=== PATIENT | male | born 1950 | race Caucasian/White ===

== ENCOUNTER 2021-10-17 06:51 | Outpatient (REF) | payer MEDICARE, SELFPAY ==
[2021-10-17 07:16] LABS: MANUAL DIFF FLAG NO
[2021-10-17 08:09] LABS: Basophils Absolute Auto 0.1 X10*3/uL (0.0-0.2); Basophils Percent Auto 0.6 % (0-2); Eosinophils Absolute Auto 0.3 X10*3/uL (0.0-0.4); Eosinophils Percent Auto 3.4 % (0-4); Hematocrit 44.3 % (42.0-52.0); Hemoglobin 14.8 g/dl (14.0-18.0); Imm Gran Abs Auto 0.03 X10*3/uL (0.00-0.03); Imm Gran Pct Auto 0.4 % (0.0-0.4); Lymphocytes Absolute Auto 2.5 X10*3/uL (1.2-4.9); Lymphocytes Percent Auto 31.9 % (20-40); Mean Corpuscular HGB Conc 33.4 g/dl (31.0-36.0); Mean Corpuscular Hemoglobin 30.5 pg (27.0-33.0); Mean Corpuscular Volume 91.3 fL (80.0-98.0); Mean Platelet Volume 12.2 fL (9.4-12.4); Monocytes Absolute Auto 0.7 X10*3/uL (0.1-1.2); Monocytes Percent Auto 8.5 % (2-11); Neutrophils Absolute Auto 4.4 x10*3/uL (2.0-8.3); Neutrophils Percent Auto 55.2 % (45-73); Platelet Count 207 X10*3/uL (160-400); Red Blood Count 4.85 X10*6/uL (4.60-5.80); Red Cell Distribution Width 12.3 % (11.0-16.0); White Blood Count 7.9 X10*3/uL (4.8-10.8)
[2021-10-17 08:29] LABS: Alanine Aminotransferase 32 U/L (0-40); Albumin Level 4.3 g/dL (3.5-5.0); Alkaline Phosphatase 78 U/L (39-117); Anion Gap 12 (12-20); Aspartate Amino Transferase 21 U/L (5-37); Bilirubin Total 0.7 mg/dL (0.0-1.0); Blood Urea Nitrogen 22 mg/dL (9-16); Calcium 9.4 mg/dL (8.4-10.2); Carbon Dioxide 25 mmol/L (22-29); Chloride 108 mmol/L (96-108); Cholesterol 208 mg/dL; Estimated Glomerular Filt Rate > 60; Glucose Random 94 mg/dL (60-115); HDL Cholesterol 55 mg/dL; LDL Cholesterol Calculated 138 mg/dl; Potassium 4.7 mmol/L (3.3-5.1); Sodium 140 mmol/L (135-145); Total Protein 6.8 g/dL (6.5-8.0); Triglycerides 78 mg/dL
[2021-10-17 08:54] LABS: Prostate Specific Antigen Scr 0.52 ng/mL (<0.05-4.0); Thyroid Stimulating Hormone 3.19 uIU/mL (0.32-4.0)
[2021-10-17 09:08] LABS: Folate 8.7 ng/mL (> or = 4.0); Vitamin B12 277 pg/mL (200-900)
[2021-10-17 09:15] LABS: Estimated Average Glucose 114 mg/dL; Hemoglobin A1c % 5.6 %
== END 2021-10-17 06:52 | disposition home or self-care (01) ==
LOC: HO.LAB 06:51
PROVIDERS: PCP Internal Medicine; Visit Provider Internal Medicine
DX: E78.00 Pure hypercholesterolemia, unspecified (principal); R73.02 Impaired glucose tolerance (oral); E66.3 Overweight
CPT/HCPCS: 36415; 80053; 80061; 82607; 82746; 83036; 84153; 84439; 84443; 85025

== ENCOUNTER 2021-10-25 16:22 | Outpatient (REF) | payer MEDICARE, SELFPAY ==
--- NOTE | ~2021-10-25 | XR_ITS ---
EXAMINATION: XR SHOULDER, LEFT CLINICAL INFORMATION: Pain COMPARISON: None TECHNIQUE: AP external rotation, Grashey, scapular Y, and axillary views of the left shoulder. FINDINGS: Bone alignment is normal. No fracture or dislocation is seen. The joint spaces are normal. There may be a small undersurface acromial osteophyte. XR/XR shoulder LT min 2V IMPRESSION: Small undersurface acromial osteophyte otherwise unremarkable exam.
== END 2021-10-25 16:23 | disposition home or self-care (01) ==
LOC: HO.XRAY 16:22
PROVIDERS: PCP Internal Medicine; Visit Provider Internal Medicine
DX: M25.512 Pain in left shoulder (principal)
CPT/HCPCS: 73030

== ENCOUNTER 2023-09-14 06:02 | Outpatient (REF) | payer MEDICARE, SELFPAY ==
--- NOTE | ~2023-09-14 | XR_ITS ---
EXAMINATION: XR CHEST CLINICAL INFORMATION: Cough COMPARISON: 07/10/2017 TECHNIQUE: 2 views of the chest were obtained. FINDINGS: Heart and mediastinum within normal limits. Appearance of the carson stable. No vascular congestion, consolidations or effusions. Multiple mild compression deformities. XR/XR chest 2V IMPRESSION: No acute cardiopulmonary disease.
[2023-09-14 06:21] LABS: MANUAL DIFF FLAG NO
[2023-09-14 07:27] LABS: Basophils Absolute Auto 0.1 X10*3/uL (0.0-0.2); Eosinophils Absolute Auto 0.3 X10*3/uL (0.0-0.4); Eosinophils Percent Auto 3.1 % (0-4); Hematocrit 45.4 % (42.0-52.0); Imm Gran Abs Auto 0.04 X10*3/uL (0.00-0.03); Imm Gran Pct Auto 0.5 % (0.0-0.4); Lymphocytes Absolute Auto 2.6 X10*3/uL (1.2-4.9); Lymphocytes Percent Auto 32.7 % (20-40); Mean Corpuscular Hemoglobin 30.2 pg (27.0-33.0); Mean Corpuscular Volume 91.3 fL (80.0-98.0); Mean Platelet Volume 12.1 fL (9.4-12.4); Monocytes Absolute Auto 0.7 X10*3/uL (0.1-1.2); Monocytes Percent Auto 8.9 % (2-11); Neutrophils Absolute Auto 4.3 x10*3/uL (2.0-8.3); Neutrophils Percent Auto 53.8 % (45-73); Platelet Count 204 X10*3/uL (160-400); Red Blood Count 4.97 X10*6/uL (4.60-5.80); Red Cell Distribution Width 12.6 % (11.0-16.0)
[2023-09-14 07:53] LABS: Alanine Aminotransferase 33 U/L (0-40); Albumin Level 4.5 g/dL (3.5-5.0); Alkaline Phosphatase 76 U/L (39-117); Anion Gap 14 (12-20); Aspartate Amino Transferase 26 U/L (5-37); Bilirubin Total 0.7 mg/dL (0.0-1.0); Blood Urea Nitrogen 16 mg/dL (9-16); Calcium 10.1 mg/dL (8.4-10.2); Carbon Dioxide 26 mmol/L (22-29); Chloride 106 mmol/L (96-108); Cholesterol 204 mg/dL (<200); Estimated Glomerular Filt Rate > 60; Glucose Random 100 mg/dL (60-115); HDL Cholesterol 52 mg/dL (>40); LDL Cholesterol Calculated 139 mg/dL (<100); Potassium 4.7 mmol/L (3.3-5.1); Sodium 141 mmol/L (135-145); Total Protein 7.1 g/dL (6.5-8.0); Triglycerides 68 mg/dL (<150)
[2023-09-14 08:14] LABS: Folate 10.4 ng/mL (> or = 4.0); Vitamin B12 386 pg/mL (200-900)
[2023-09-14 08:25] LABS: Free T4 (Free Thyroxine) 0.95 ng/dL (0.71-1.85); Thyroid Stimulating Hormone 2.81 uIU/mL (0.32-4.0)
== END 2023-09-14 06:03 | disposition home or self-care (01) ==
LOC: HO.LAB 06:02
PROVIDERS: PCP Internal Medicine; Visit Provider Internal Medicine
DX: R05.9 Cough, unspecified (principal); E78.00 Pure hypercholesterolemia, unspecified; I10 Essential (primary) hypertension
CPT/HCPCS: 36415; 71046; 80053; 80061; 82607; 82746; 84439; 84443; 85025

== ENCOUNTER 2023-09-18 09:25 | Outpatient (AMB) | payer MEDICARE, SELFPAY ==
[2023-09-18 09:26] VITALS: BP 130/78; PULSE 89; O2SAT 98; BMI 30.1
--- NOTE | 2023-09-18 09:26 | MHC.PC.OV ---
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 Allergies No Known Allergies Allergy (Verified 09/18/23 09:27) Tobacco use date assessed: 09/18/23 Fall risk assessment: No Falls in past year Last assessed Fall Risk: 09/18/23 Dental Screening Dental Screen Date: 09/18/23 Did you have a dental visit in the last 12 months?: Yes Did you have a dental problem in the last 6 months where you did not have access to dental care?: No Was dental information given to patient?: Patient has dentist HPI impairedglucose tolerance and hypercholesterolemia HPI Details 73-year-old obese male with impaired glucose tolerance hypercholesterolemia last seen in May 2023 with elevated blood pressure. Patient was advised to follow-up today. Patient had the COVID vaccine and the flu vaccine. 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 Hypercholesterolemia Obesity (BMI 30-39.9) Fatty liver Vitamin D deficiency Surgical History H/O right knee surgery History of rotator cuff surgery History of colonoscopy History of prostate surgery History of inguinal hernia repair History of tonsillectomy History of umbilical hernia repair Family History (Updated 06/01/23 @ 10:04 by Analilia Cheung CMA) Father Hypertension CVD (cardiovascular disease) Mother Hypertension Parkinson disease Maternal Grandfather Tuberculosis Paternal Grandfather Lymphoma Maternal Uncle Colon cancer Social History Housing: House Alcohol intake: current Alcohol intake frequency: a few times a month Alcohol type: beer and wine Patient Tobacco Use Status: Never used Tobacco e-Cigarette/Vaping Use: Never Used Second Hand Smoke Exposure: No Current occupational status: retired Cognitive needs: No Hearing needs: No Vision needs: Yes Questionnaire Thrive Questionnaire Date Thrive assessed: 06/01/23 AUDIT C Alcohol Use Questionnaire (AUDIT-C) 1. How often do you have a drink containing alcohol?: 2-4 times a month 2. How many drinks containing alcohol do you have on a typical day when you are drinking?: 1 or 2 3. How often do you have six or more drinks on one occasion?: Never Total Score: 2 LIZBET-7 AMB Questionnaire LIZBET-7 Date LIZBET - 7 assessed: 06/01/23 Source: Developed by Drs. Pola Romero, Kailey Wilder, Cortez Bowling and colleagues, with an educational libertad from [employer]. Physical exam (Primary Care) Vital Signs: Last Vital Signs Pulse 89 09/18/23 09:26 BP 130/78 09/18/23 09:26 Pulse Ox 98 09/18/23 09:26 Oxygen Delivery Method Room Air 09/18/23 09:26 BMI result Body Mass Index 30.1 Tobacco/Smoking Status: Tobacco use Status Tobacco use date assessed 09/18/23 09/18/23 09:29 Patient Tobacco Use Status Never used Tobacco 09/18/23 09:29 e-Cigarette/Vaping Use Never Used 09/18/23 09:29 Thrive Assessment: Date of Thrive Assessment Date Thrive assessed 06/01/23 09/18/23 09:29 Const General: alert; No acute distress Eyes Conjunctivae: conjunctivae normal Resp Auscultation: clear to auscultation bilaterally Cardio Rate: regular rate Rhythm: regular rhythm GI Inspection: Yes normal to inspection Extrem General: Yes normal to inspection and No edema Assessment and Plan Assessment & Plan (1) Obesity (BMI 30.0-34.9): Code(s): E66.9 - Obesity, unspecified Plan: Diet and exercise (2) Impaired glucose tolerance: Code(s): R73.02 - Impaired glucose tolerance (oral) Plan: Decrease the amount of carbohydrate intake, pasta, bread, rice and potatoes are all sugar and that is aside from all the sweet stuff, remember that fruits are good but they are Sweet also. (3) Hypercholesterolemia: Code(s): E78.00 - Pure hypercholesterolemia, unspecified Plan: Avoid fried foods, chicken skin, eggs, butter margarine, pastries and meat. Be it pork or beef they have a lot of cholesterol LDL goal of less than 130 and triglyceride of less than 150 Coding Level of Care Code Est Pt Level 4 (58560) Diagnoses Obesity (BMI 30.0-34.9) E66.9 Impaired glucose tolerance R73.02 Hypercholesterolemia E78.00
== END 2023-09-18 09:51 | disposition home or self-care (01) ==
PROVIDERS: PCP Internal Medicine; Visit Provider Internal Medicine
DX: R73.02 Impaired glucose tolerance (oral) (principal); E78.00 Pure hypercholesterolemia, unspecified; E66.9 Obesity, unspecified; Z68.30 Body mass index [BMI] 30.0-30.9, adult
CPT/HCPCS: 99214

== ENCOUNTER 2023-10-16 08:24 | Outpatient (AMB) | payer MEDICARE, SELFPAY ==
[2023-10-16 08:28] VITALS: BP 130/76; PULSE 60; O2SAT 98; BMI 30.1
--- NOTE | 2023-10-16 08:28 | A.OFFVIS_ITS ---
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 Patient of Dr. Ortiz last seen in August, presents today for subsequent Medicare wellness exam. Patient up-to-date on vaccinations, Patient states got his flu shot and covid booster. Colonoscopy was completed in 2018,Follow up in 10 years. Blood workup completed last year, orders placed for yearly blood work. Patient gets yearly eye exams [facility]. Patient reports positive family history of Lewy body dementia patient questioning if there is any genetic testing for this. Spoke with PCP no current available genetic testing for Lewy body dementia if patient would like referral to Neurology we can enter this for him. Attempted to call and notify patient however no answer, LM to call patient back. 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 Hypercholesterolemia Obesity (BMI 30-39.9) Fatty liver Vitamin D deficiency Surgical History H/O right knee surgery History of rotator cuff surgery History of colonoscopy History of prostate surgery History of inguinal hernia repair History of tonsillectomy History of umbilical hernia repair Family History Father Hypertension CVD (cardiovascular disease) Mother Hypertension Parkinson disease Maternal Grandfather Tuberculosis Paternal Grandfather Lymphoma Maternal Uncle Colon cancer Housing: House Alcohol intake: current Alcohol intake frequency: a few times a month Alcohol type: beer and wine Patient Tobacco Use Status: Never used Tobacco e-Cigarette/Vaping Use: Never Used Second Hand Smoke Exposure: No Current occupational status: retired Cognitive needs: No Hearing needs: No Vision needs: Yes Questionnaire Mini Mental State Exam (MMSE) Orientation What is the (year) (season) (date) (day) (month)?: year, season, date, day and month Score Score: 5 Activity of Daily Living Bathing - sponge bath, tub bath or shower: receives no assistance (gets in/out by self, if usual bathing means Dressing - getting clothes from closets & drawers, including inner/outer garments & fasteners.: gets clothes & gets completely dressed without help Toileting - going to the 'toilet room' for urine/bowel elimination & cleaning self/arranging clothes: goes to toilet room, cleans self, arranges clothes without help Transfer: moves in & out of bed and chair without help (may use support object) Continence: controls urination/bowel movements completely by self Feeding: feeds self without help Total Score: 0 Information obtained from: patient Using telephone: independent Traveling: independent Shopping: independent Preparing meals: independent Housework: independent Taking medicine: independent Managing money: independent Physical Exam Vital Signs: Last Vital Signs Pulse 60 10/16/23 08:28 BP 130/76 10/16/23 08:28 Pulse Ox 98 10/16/23 08:28 Oxygen Delivery Method Room Air 10/16/23 08:28 BMI result Body Mass Index 30.1 Const General: cooperative and no acute distress Orientation/consciousness: patient oriented x3 HEENT Ears: other (whisper test: pass) Neuro General: patient oriented x3 Gait exam (Neuro): Normal gait present Coordination: tandem gait normal and Romberg test negative Assessment & Plan Assessment & Plan (1) Hypercholesterolemia: Code(s): E78.00 - Pure hypercholesterolemia, unspecified Plan: Avoid fried foods, chicken skin, eggs, butter,margarine, pastries and? red meat. LDL-139, goal < 130 (2) Impaired glucose tolerance: Code(s): R73.02 - Impaired glucose tolerance (oral) Plan: Patient educated to decrease the amount of carbohydrate intake such as pasta, bread, rice and potatoes are all sugar in addition to the sweet stuff. Remember that fruits are good but they also have sugar. (3) Overweight (BMI 25.0-29.9): Code(s): E66.3 - Overweight Plan: Continue to diet and exercise to reduce BMI (4) Medicare annual wellness visit, subsequent: Code(s): Z00.00 - Encounter for general adult medical examination without abnormal findings Plan Follow-up in 1 year [facility] Patient requesting follow-up in [address] Ortiz. Coding Level of Care Code Medicare Subsequent (G0439) Diagnoses Hypercholesterolemia E78.00 Impaired glucose tolerance R73.02 Overweight (BMI 25.0-29.9) E66.3 Medicare annual wellness visit, subsequent Z00.00 Advance Care Planning Advance Care Planning discussion: Exists, not on file Date of discussion: 10/16/23 Who was present: Patient. Patient states he has healthcare proxy and MOLST form and discussed bring them into scanned into patient's chart at next appointment. Forms completed: Health Care Proxy and MOLST Actual minutes spent: 1 Did not discuss due to Cultural/Spiritual beliefs: No
== END 2023-10-16 09:07 | disposition home or self-care (01) ==
PROVIDERS: Visit Provider Nurse Practitioner Family
DX: E78.00 Pure hypercholesterolemia, unspecified (principal); R73.02 Impaired glucose tolerance (oral); E66.3 Overweight; Z00.00 Encounter for general adult medical examination without abnormal findings
CPT/HCPCS: G0439

== ENCOUNTER 2024-01-16 08:18 | Outpatient (AMB) | payer MEDICARE, SELFPAY ==
--- NOTE | 2024-01-16 08:26 | A.OFFPC_ITS ---
Vital Signs 3 01/16/24 08:27 Height 5 ft 7 in Weight 191 lb BMI 29.9 BP 118/68 Blood Pressure Location Lt brachial Position Sitting Pulse 75 Pulse Source Pulse Oximeter Pulse Oximetry (%) 94 Oxygen Delivery Method Room Air Intake Visit Reasons: 3mth f/u Allergies No Known Allergies Allergy (Verified 01/16/24 08:27) Tobacco use date assessed: 01/16/24 Fall risk assessment: No Falls in past year Last assessed Fall Risk: 01/16/24 Dental Screening Dental Screen Date: 01/16/24 Did you have a dental visit in the last 12 months?: Yes Did you have a dental problem in the last 6 months where you did not have access to dental care?: No Was dental information given to patient?: Patient has dentist HPI 3mth f/u 2 HPI0 Details 73-year-old overweight male with hyperch olesterolemia and impaired glucose tolerance coming in for follow-up. Last seen in September 2023 had a medical annual wellness visit. 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 Hypercholesterolemia Obesity (BMI 30-39.9) Fatty liver Vitamin D deficiency Surgical History H/O right knee surgery History of rotator cuff surgery History of colonoscopy History of prostate surgery History of inguinal hernia repair History of tonsillectomy History of umbilical hernia repair Family History Father Hypertension CVD (cardiovascular disease) Mother Hypertension Parkinson disease Maternal Grandfather Tuberculosis Paternal Grandfather Lymphoma Maternal Uncle Colon cancer Social History Housing: House Alcohol intake: current Alcohol intake frequency: a few times a month Alcohol type: beer and wine Patient Tobacco Use Status: Never used Tobacco e-Cigarette/Vaping Use: Never Used Second Hand Smoke Exposure: No Current occupational status: retired Cognitive needs: No Hearing needs: No Vision needs: Yes Questionnaire PHQ-9 Over the last 2 weeks, how often have you been bothered by any of the following problems? 1. Little interest or pleasure in doing things: not at all 2. Feeling down, depressed, or hopeless: not at all 3. Trouble falling or staying asleep, or sleeping too much: not at all 4. Feeling tired or having little energy: not at all 5. Poor appetite or overeating: not at all 6. Feeling bad about yourself - or that you are a failure or have let yourself or your family down: not at all 7. Trouble concentrating on things, such as reading the newspaper or watching television: not at all 8. Moving or speaking so slowly that other people could have noticed. Or the opposite - being so fidgety or restless that you have been moving around a lot more than usual: not at all 9. Thoughts that you would be better off or of hurting yourself in some way: not at all Total score: 0 Depression Screening Interpretation: Negative Depression Screening Done: Yes Source: Developed by Drs. Pola Romero, Kailey Wilder, Cortez Bowling and colleagues, with an educational libertad from [employer]. Thrive Questionnaire Date Thrive assessed: 01/16/24 I am a: Patient What is your living situation today?: I have a steady place to live Within the past 12 months, did the food you bought not last and you didn't have the money to get more?: Never true Within the past 12 months, did you worry whether your food would run out before you got money to buy more?: Never true Do you have trouble paying for medicines?: No Do you have trouble getting transportation to medical appointments?: No Do you have trouble paying your heating and electricity bill?: No Do you have trouble taking care of your child, family member or friend?: No Do you have trouble with day-to-day activities such as bathing, preparing meals, shopping, managing finances, etc.?: No Are you currently unemployed and looking for a job?: No Are you interested in more education?: No Currently or been in a relationship where the following occur: no concerns reported THRIVE Score: 0 AUDIT C Alcohol Use Questionnaire (AUDIT-C) 1. How often do you have a drink containing alcohol?: 2-4 times a month 2. How many drinks containing alcohol do you have on a typical day when you are drinking?: 1 or 2 3. How often do you have six or more drinks on one occasion?: Never Total Score: 2 LIZBET-7 AMB Questionnaire LIZBET-7 Date LIZBET - 7 assessed: 01/16/24 Feeling nervous, anxious, or on edge: 0 = Not at all Not being able to stop or control worryin = Not at all Worrying too much about different things: 0 = Not at all Trouble relaxin = Not at all Being so restless that it is hard to sit still: 0 = Not at all Becoming easily annoyed or irritable: 0 = Not at all Feeling afraid as if something awful might happen: 0 = Not at all Total LIZBET-7 score (0-4 normal; 5-9 mild; 10-14 moderate; 15-21 severe): 0 Source: Developed by Drs. Pola Romero, Kailey Wilder, Cortez Bowling and colleagues, with an educational libertad from [employer]. Physical exam (Primary Care) Vital Signs: Oxygen Delivery Method Room Air 01/16/24 08:27 BMI result Body Mass Index 29.9 Tobacco/Smoking Status: Tobacco use Status Tobacco use date assessed 09/18/23 09/18/23 09:29 Patient Tobacco Use Status Never used Tobacco 09/18/23 09:29 e-Cigarette/Vaping Use Never Used 09/18/23 09:29 Depression Screening Interpretation: Negative Thrive Assessment: Date of Thrive Assessment Date Thrive assessed 06/01/23 09/18/23 09:29 Currently or been in a relationship where the following occur: no concerns reported Const General: alert; No acute distress Eyes Conjunctivae: conjunctivae normal Resp Auscultation: clear to auscultation bilaterally Cardio Rate: regular rate Rhythm: regular rhythm GI Inspection: Yes normal to inspection Extrem General: Yes normal to inspection and No edema Ankle/foot/toe images: 2 1. 1 Cm mass on the right 2nd toe no redness mild tenderness no scaliness. No change in collar Assessment and Plan Assessment & Plan (1) Impaired glucose tolerance: Code(s): R73.02 - Impaired glucose tolerance (oral) Plan: Decrease the amount of carbohydrate intake, pasta, bread, rice and potatoes are all sugar and that is aside from all the sweet stuff, remember that fruits are good but they are Sweet also. (2) Overweight (BMI 25.0-29.9): Code(s): E66.3 - Overweight Plan: Diet and exercise (3) Hypercholesterolemia: Code(s): E78.00 - Pure hypercholesterolemia, unspecified Plan: Avoid fried foods, chicken skin, eggs, butter margarine, pastries and meat. Be it pork or beef they have a lot of cholesterol LDL goal of less than 130 and triglyceride of less than 150.. November was sick with a cold. - was sick (4) Mucous cyst of toe: Comment: R 2nd toe Code(s): M67.479 - Ganglion, unspecified ankle and foot Plan: refer to denial management representative Orders: Orders 2 Comprehensive Met. Panel 6 Months R73.02 - Impaired glucose tolerance (oral) Thyroid Stimulating Hormone 6 Months E78.00 - Pure hypercholesterolemia, unspecified Prostate Specific Antigen Scr 6 Months E78.00 - Pure hypercholesterolemia, unspecified Complete Blood Count Auto Diff 6 Months R73.02 - Impaired glucose tolerance (oral) Hemoglobin A1c 6 Months R73.02 - Impaired glucose tolerance (oral) Lipid Panel 6 Months E78.00 - Pure hypercholesterolemia, unspecified Free T4 (Free Thyroxine) 6 Months E78.00 - Pure hypercholesterolemia, unspecified Vitamin B12 and Folate 6 Months E78.00 - Pure hypercholesterolemia, unspecified Referrals 2 Podiatry Referral M67.479 - Ganglion, unspecified ankle and foot Coding Level of Care Code Est Pt Level 4 (50411) Diagnoses Impaired glucose tolerance R73.02 Overweight (BMI 25.0-29.9) E66.3 Hypercholesterolemia E78.00 Mucous cyst of toe M67.479 Additional Codes PHQ-9 - 06576 - PHQ-9 Billing: ([id number])
[2024-01-16 08:27] VITALS: BP 118/68; PULSE 75; O2SAT 94; BMI 29.9
== END 2024-01-16 08:57 | disposition home or self-care (01) ==
PROVIDERS: PCP Internal Medicine; Visit Provider Internal Medicine
DX: R73.02 Impaired glucose tolerance (oral) (principal); E66.3 Overweight; E78.00 Pure hypercholesterolemia, unspecified; M67.479 Ganglion, unspecified ankle and foot
CPT/HCPCS: 99214

== ENCOUNTER 2024-03-10 13:43 | Emergency (ER) | payer MEDICARE, SELFPAY ==
--- NOTE | 2024-03-10 | ECG_ITS ---
Test Reason : SHORT OF BREATH Blood Pressure : / mmHG Vent. Rate : 056 BPM Atrial Rate : 056 BPM P-R Int : 190 ms QRS Dur : 148 ms QT Int : 452 ms P-R-T Axes : 040 -68 006 degrees QTc Int : 436 ms Sinus bradycardia Left axis deviation Right bundle branch block Abnormal ECG When compared with ECG of 08-DEC-2016 08:45, No significant change was found Referred By: Generic ED Physician Electronically Signed By:DAVINA HUTSON
--- NOTE | ~2024-03-10 | XR_ITS ---
EXAMINATION: XR CHEST CLINICAL INFORMATION: Dizziness and lightheadedness COMPARISON: 09/14/2023 TECHNIQUE: 2 views of the chest were obtained. FINDINGS: No significant abnormality is noted involving the heart, lungs, mediastinum, bony thorax or soft tissues. XR/XR chest 2V IMPRESSION: Unremarkable examination.
[2024-03-10 14:17] VITALS: BP 144/72; PULSE 61; RESP 18; TEMP 36.6; O2SAT 94
--- NOTE | 2024-03-10 14:17 | ED.GENADULT ---
HPI - General Adult General Chief complaint: Dyspnea Stated complaint: SOB/Dizziness Time Seen by Provider: 03/10/24 17:40 History of Present Illness HPI narrative: The patient is a 74-year-old who describes himself as generally very healthy. He is on no medications. He has 12 acres of property around his house and he does a lot of work on his properly including chopping firewood. He describes himself as ordinarily extremely active. The patient says that over the last 4 days, starting on Sunday, he has felt an unusual sense of shortness of breath with exertion. He says that if he exerts himself he feels dizzy, lightheaded, and short of breath and also gets blurry vision. When he rests does not have any symptoms. He says that he was bitten by a tick last week which is removed. He thinks it was probably on him for less than 24 hours. He thinks it was probably a deer tick. He has not had any fevers, sweats, chills. No rash. No chest pain. No pleuritic pain. No pain or swelling in his legs. No dark stools. No abdominal pain. No nausea or vomiting. He says that this morning he went down the slope of his front yard to his mailbox and then had to walk up a fairly steep slope back to his house. He felt short of breath and weak and at that point decided to come to the hospital for evaluation. The patient says that his blood pressure is normally less than 120 systolic. 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 Hypercholesterolemia Obesity (BMI 30-39.9) Fatty liver Vitamin D deficiency Surgical History H/O right knee surgery History of rotator cuff surgery History of colonoscopy History of prostate surgery History of inguinal hernia repair History of tonsillectomy History of umbilical hernia repair Family History Family History Father Hypertension CVD (cardiovascular disease) Mother Hypertension Parkinson disease Maternal Grandfather Tuberculosis Paternal Grandfather Lymphoma Maternal Uncle Colon cancer Social History Social History Housing: House Alcohol intake: current Alcohol intake frequency: a few times a week Alcohol type: beer and wine Patient Tobacco Use Status: Never used Tobacco Smoked in Last 30 Days: No e-Cigarette/Vaping Use: Never Used Second Hand Smoke Exposure: No Use of substances other than those prescribed or required for medical reasons: No Advance Directives: No Advance Directives Information Provided: Yes Current occupational status: retired Cognitive needs: No Hearing needs: No Vision needs: Yes Physical Exam ED Vital Signs: Vital Signs - 24 hr 03/10/24 14:17 03/10/24 19:12 03/10/24 19:13 Temperature 97.9 F 97.6 F 97.6 F Pulse Rate 61 52 52 Respiratory Rate 18 16 16 Blood Pressure 144/72 H 155/77 H 155/77 H Pulse Oximetry 94 99 99 Oxygen Delivery Method Room Air Room Air Room Air BMI result Body Mass Index 30.0 Const Other: The patient is a dodd 74-year-old male who was awake and alert and does not appear in obvious distress. He is cheerful and pleasant. HENMT Other: Face is symmetrical. Mucous membranes moist. Eyes Other: Pupils are round equal, conjunctivae clear Neck Neck: Yes no JVD Resp Effort & Inspection: normal respiratory effort Auscultation: clear to auscultation bilaterally Cardio Rate: bradycardic Rhythm: regular rhythm Heart sounds: S1 normal heart sound present and S2 normal heart sound present GI Other: Abdomen is soft and nontender Skin Other: Skin is dry and unremarkable Neuro Other: The patient is awake and alert, pleasant cooperative, speech is normal, face is symmetrical, moves his extremities symmetrically. Grossly neurologically intact Extrem Other: No peripheral edema Course Course Course Narrative: 74-year-old male presents for evaluation of cough, dizziness, shortness of breath exertion. Plan for cardiac workup. EKG was ordered and completed on arrival. The patient has no known medical history and does not take any medication Medical Decision Making Medical Decision Making MDM Narrative: The patient is a 74-year-old male on no medications who describes himself as being ordinarily healthy and active. He presents to the emergency room because of 2-3 days of exertional dizziness, lightheadedness, and shortness of breath. Clinically the patient looks well on exam. Based on his description of his symptoms he does not seem to have any symptoms except with exertion. He was asymptomatic in the emergency room. A large number of tests were done to evaluate his symptoms including an EKG which shows sinus bradycardia at 56 beats per minute and which shows an old right bundle branch block and left axis deviation. His CBC is normal. He has not anemic. He has a normal white count and differential. His metabolic panel is normal. His renal function is normal. Glucose is normal. LFTs are normal. Troponin is undetectable. C-reactive protein is undetectable. BNP is undetectable. TSH is normal. Viral testing for influenza, RSV, and COVID are all negative. Chest x-ray is negative. The patient reports being bitten by a tick last week. Lyme screen is pending. His other lab testing is not suggestive of other tick-borne illnesses such as babesiosis or anaplasmosis. Ultimately I do not find any process to explain the patient's symptoms. I do not feel the patient is describing any symptoms that require any obvious additional testing or hospitalization. I think the patient may be discharged to follow up with his regular doctor. His Lyme screen is pending. Lab Data 03/10/24 16:49 03/10/24 16:49 Labs: Lab Results 03/10/24 03/10/24 Range/Units 16:49 16:50 WBC 9.4 (4.8-10.8) X10*3/uL RBC 5.01 (4.60-5.80) X10*6/uL Hgb 15.1 (14.0-18.0) g/dl Hct 44.8 (42.0-52.0) % MCV 89.4 (80.0-98.0) fL MCH 30.1 (27.0-33.0) pg MCHC 33.7 (31.0-36.0) g/dl RDW 12.7 (11.0-16.0) % Plt Count 210 (160-400) X10*3/uL MPV 11.5 (9.4-12.4) fL Immature Gran % (Auto) 0.6 H (0.0-0.4) % Neut % (Auto) 57.0 (45-73) % Lymph % (Auto) 30.4 (20-40) % Bond % (Auto) 8.2 (2-11) % Eos % (Auto) 2.8 (0-4) % Baso % (Auto) 1.0 (0-2) % Lymph # (Auto) 2.8 (1.2-4.9) X10*3/uL Bond # (Auto) 0.8 (0.1-1.2) X10*3/uL Eos # (Auto) 0.3 (0.0-0.4) X10*3/uL Baso # (Auto) 0.1 (0.0-0.2) X10*3/uL Abs Immat Gran (auto) 0.06 H (0.00-0.03) X10*3/uL Absolute Neuts (auto) 5.3 (2.0-8.3) x10*3/uL Absolute Nucleated RBC 0.000 (0.0-0.012) X10*3/uL Nucleated RBC % (auto) 0.0 (0.0-0.2) /100WBC ESR 2 (0-15) MM/HR PT 12.0 (11.1-13.3) SEC INR 1.0 (0.9-1.1) D-Dimer High Sensitivty < 150 NG/ML Sodium 141 (135-145) mmol/L Potassium 4.3 (3.3-5.1) mmol/L Chloride 108 (96-108) mmol/L Carbon Dioxide 26 (22-29) mmol/L Anion Gap 11 L (12-20) BUN 15 (9-16) mg/dL Creatinine 0.83 (0.5-1.4) mg/dL Estim Creat Clear Calc 84.7 Estimated GFR > 60 Random Glucose 106 (60-115) mg/dL Calcium 9.3 D (8.4-10.2) mg/dL Total Bilirubin 0.3 (0.0-1.0) mg/dL AST 22 (5-37) U/L ALT 31 (0-40) U/L Alkaline Phosphatase 82 (39-117) U/L Troponin I High Sens < 2.7 (<3.5-35.0) ng/L C-Reactive Protein < 0.10 (< or = 0.50) mg/dL B-Natriuretic Peptide < 10 (<100) pg/mL Total Protein 7.0 (6.5-8.0) g/dL Albumin 4.4 (3.5-5.0) g/dL Lipase 24 (8-78) U/L TSH 2.14 (0.32-4.0) uIU/mL Influenza Type A (PCR) NEGATIVE (Negative) Influenza Type B (PCR) NEGATIVE (Negative) RSV RNA Qual (PCR) NEGATIVE (Negative) SARS-CoV-2 RNA (RT-PCR) NEGATIVE (Negative) Independent Interpretation I performed an independent interpretation of an: EKG Interpretation: Sinus bradycardia 56 beats per minute. There is left axis deviation and a right bundle branch block both of which are old. No change from previous. No acute findings. Discharge Plan Discharge Clinical Impression: Dyspnea on exertion Patient Disposition: Home, Self-Care Additional Instructions: Your testing in the emergency room today is very reassuring. Please plan on contacting your regular doctor's office tomorrow morning to arrange a prompt follow-up appointment for a 2nd opinion and further consideration of your symptoms. Your Lyme test is still pending. I would recommend taking it easy until you follow up with your regular doctor. Return to the emergency room if you feel significantly worse at any time. Prescriptions: No Action fexofenadine [Carola Allergy] 180 mg tablet 180 mg PO DAILY Referrals: Po,Ish Conklin MD [Primary Care Provider] - (Exertional dyspnea, negative ER workup) Interventions: ED Discharge Assessment Last Done: 03/10/24 19:13 Discharge Date/Time: 03/10/24 19:15 Print Language: Slovak
[2024-03-10 16:57] LABS: MANUAL DIFF FLAG NO
[2024-03-10 16:59] LABS: Basophils Absolute Auto 0.1 X10*3/uL (0.0-0.2); Eosinophils Absolute Auto 0.3 X10*3/uL (0.0-0.4); Eosinophils Percent Auto 2.8 % (0-4); Hematocrit 44.8 % (42.0-52.0); Hemoglobin 15.1 g/dl (14.0-18.0); Imm Gran Abs Auto 0.06 X10*3/uL (0.00-0.03); Imm Gran Pct Auto 0.6 % (0.0-0.4); Lymphocytes Absolute Auto 2.8 X10*3/uL (1.2-4.9); Lymphocytes Percent Auto 30.4 % (20-40); Mean Corpuscular HGB Conc 33.7 g/dl (31.0-36.0); Mean Corpuscular Hemoglobin 30.1 pg (27.0-33.0); Mean Corpuscular Volume 89.4 fL (80.0-98.0); Mean Platelet Volume 11.5 fL (9.4-12.4); Monocytes Absolute Auto 0.8 X10*3/uL (0.1-1.2); Monocytes Percent Auto 8.2 % (2-11); Neutrophils Absolute Auto 5.3 x10*3/uL (2.0-8.3); Platelet Count 210 X10*3/uL (160-400); Red Blood Count 5.01 X10*6/uL (4.60-5.80); Red Cell Distribution Width 12.7 % (11.0-16.0); White Blood Count 9.4 X10*3/uL (4.8-10.8)
[2024-03-10 17:27] LABS: B Type Natriuretic Peptide < 10 pg/mL (<100)
[2024-03-10 17:27] LABS: Troponin-I High Sensitivity < 2.7 ng/L (<3.5-35.0)
[2024-03-10 17:45] LABS: Alanine Aminotransferase 31 U/L (0-40); Albumin Level 4.4 g/dL (3.5-5.0); Alkaline Phosphatase 82 U/L (39-117); Anion Gap 11 (12-20); Aspartate Amino Transferase 22 U/L (5-37); Bilirubin Total 0.3 mg/dL (0.0-1.0); Blood Urea Nitrogen 15 mg/dL (9-16); Calcium 9.3 mg/dL (8.4-10.2); Carbon Dioxide 26 mmol/L (22-29); Chloride 108 mmol/L (96-108); Creatinine Clr Calc Pharmacy 84.7; Estimated Glomerular Filt Rate > 60; Glucose Random 106 mg/dL (60-115); Lipase 24 U/L (8-78); Potassium 4.3 mmol/L (3.3-5.1); Sodium 141 mmol/L (135-145)
[2024-03-10 17:49] LABS: Influenza A PCR NEGATIVE (Negative); Influenza B PCR NEGATIVE (Negative); Resp Syncy Virus RNA Qual PCR NEGATIVE (Negative); SARS COV2 PCR INHOUSE NEGATIVE (Negative)
[2024-03-10 18:15] LABS: C Reactive Protein < 0.10 mg/dL (< or = 0.50)
[2024-03-10 18:18] LABS: D Dimer High Sensitivity < 150 NG/ML
[2024-03-10 18:37] LABS: Thyroid Stimulating Hormone 2.14 uIU/mL (0.32-4.0)
[2024-03-10 18:45] LABS: Erythrocyte Sedimentation Rate 2 MM/HR (0-15)
[2024-03-10 19:12] VITALS: BP 155/77; PULSE 52; RESP 16; TEMP 36.4; O2SAT 99
[2024-03-10 19:13] VITALS: BP 155/77; PULSE 52; RESP 16; TEMP 36.4; O2SAT 99
[2024-03-11 09:50] LABS: Lyme Abs Screen <0.90 index
== END 2024-03-10 19:15 | disposition home or self-care (01) ==
PROVIDERS: Physician Assistant; Emergency Provider Emergency Medicine; PCP Internal Medicine
DX: R06.00 Dyspnea, unspecified (principal); R42 Dizziness and giddiness; T14.8XXA Other injury of unspecified body region, initial encounter; W57.XXXA Bitten or stung by nonvenomous insect and other nonvenomous arthropods, initial encounter; Y93.9 Activity, unspecified; Y92.9 Unspecified place or not applicable; Y99.9 Unspecified external cause status
CPT/HCPCS: 0241U; 36415; 71046; 80053; 83690; 83880; 84443; 84484; 85025; 85379; 85610; 85652; 86140; 86617; 86618; 93005; 99283; 99284

== ENCOUNTER → 2024-03-10 14:04 | Outpatient (BNV) | payer MEDICARE, SELFPAY | PROVIDERS: Emergency Provider Emergency Medicine; PCP Internal Medicine; Visit Provider Internal Medicine | DX: I45.10 Unspecified right bundle-branch block (principal); R00.1 Bradycardia, unspecified | CPT/HCPCS: 93010 ==

== ENCOUNTER 2024-03-19 09:58 | Outpatient (AMB) | payer MEDICARE, SELFPAY ==
--- NOTE | 2024-03-19 10:00 | A.OFFPC_ITS ---
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 Last seen in December 2023 had a mass on the toe and was referred to Podiatry. Patient's last colonoscopy was July 2019 review of the notes was in the emergency room for shortness of breath 03/10/2024 states tick bite recently testing were negative. 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 Hypercholesterolemia Obesity (BMI 30-39.9) Fatty liver Vitamin D deficiency Surgical History H/O right knee surgery History of rotator cuff surgery History of colonoscopy History of prostate surgery History of inguinal hernia repair History of tonsillectomy History of umbilical hernia repair Family History Father Hypertension CVD (cardiovascular disease) Mother Hypertension Parkinson disease Maternal Grandfather Tuberculosis Paternal Grandfather Lymphoma Maternal Uncle Colon cancer Social History Housing: House Alcohol intake: current Alcohol intake frequency: a few times a week Alcohol type: beer and wine Patient Tobacco Use Status: Never used Tobacco e-Cigarette/Vaping Use: Never Used Second Hand Smoke Exposure: No Current occupational status: retired Cognitive needs: No Hearing needs: No Vision needs: Yes Questionnaire Thrive Questionnaire Date Thrive assessed: 01/16/24 I am a: Patient What is your living situation today?: I have a steady place to live Within the past 12 months, did the food you bought not last and you didn't have the money to get more?: Never true Within the past 12 months, did you worry whether your food would run out before you got money to buy more?: Never true Do you have trouble paying for medicines?: No Do you have trouble getting transportation to medical appointments?: No Do you have trouble paying your heating and electricity bill?: No Do you have trouble taking care of your child, family member or friend?: No Do you have trouble with day-to-day activities such as bathing, preparing meals, shopping, managing finances, etc.?: No Are you currently unemployed and looking for a job?: No Are you interested in more education?: No Currently or been in a relationship where the following occur: no concerns reported THRIVE Score: 0 AUDIT C Alcohol Use Questionnaire (AUDIT-C) 1. How often do you have a drink containing alcohol?: 2-4 times a month 2. How many drinks containing alcohol do you have on a typical day when you are drinking?: 1 or 2 3. How often do you have six or more drinks on one occasion?: Never Total Score: 2 LIZBET-7 AMB Questionnaire LIZBET-7 Date LIZBET - 7 assessed: 01/16/24 Source: Developed by Drs. Pola Romero, Kailey Wilder, Cortez Bowling and colleagues, with an educational libertad from [employer]. Physical exam (Primary Care) Vital Signs: Last Vital Signs Pulse 54 03/19/24 10:01 BP 132/70 03/19/24 10:01 Pulse Ox 98 03/19/24 10:01 Oxygen Delivery Method Room Air 03/19/24 10:01 BMI result Body Mass Index 29.4 Tobacco/Smoking Status: Tobacco use Status Tobacco use date assessed 03/19/24 03/19/24 10:02 Patient Tobacco Use Status Never used Tobacco 03/19/24 10:02 e-Cigarette/Vaping Use Never Used 03/19/24 10:02 Thrive Assessment: Date of Thrive Assessment Date Thrive assessed 01/16/24 03/19/24 10:02 Currently or been in a relationship where the following occur: no concerns reported Const General: alert; No acute distress Eyes Conjunctivae: conjunctivae normal Resp Auscultation: clear to auscultation bilaterally Cardio Rate: regular rate Rhythm: regular rhythm GI Inspection: Yes normal to inspection Extrem General: Yes normal to inspection and No edema Assessment and Plan Assessment & Plan (1) Overweight (BMI 25.0-29.9): Code(s): E66.3 - Overweight Plan: Diet and exercise (2) Hypercholesterolemia: Code(s): E78.00 - Pure hypercholesterolemia, unspecified Plan: Avoid fried foods, chicken skin, eggs, butter margarine, pastries and meat. Be it pork or beef they have a lot of cholesterol October blood work mild LDL goal of less than 130 and triglyceride of less than 150 (3) Impaired glucose tolerance: Code(s): R73.02 - Impaired glucose tolerance (oral) Plan: Decrease the amount of carbohydrate intake, pasta, bread, rice and potatoes are all sugar and that is aside from all the sweet stuff, remember that fruits are good but they are Sweet also. (4) Dyspnea on exertion: Code(s): R06.09 - Other forms of dyspnea Orders: Orders CA stress test Today R06.09 - Other forms of dyspnea Coding Level of Care Code Est Pt Level 4 (07433) Diagnoses Overweight (BMI 25.0-29.9) E66.3 Hypercholesterolemia E78.00 Impaired glucose tolerance R73.02 Dyspnea on exertion R06.09
[2024-03-19 10:01] VITALS: BP 132/70; PULSE 54; O2SAT 98; BMI 29.4
== END 2024-03-19 11:00 | disposition home or self-care (01) ==
PROVIDERS: PCP Internal Medicine; Visit Provider Internal Medicine
DX: E66.3 Overweight (principal); E78.00 Pure hypercholesterolemia, unspecified; R73.02 Impaired glucose tolerance (oral); R06.09 Other forms of dyspnea
CPT/HCPCS: 99214

== ENCOUNTER → 2024-03-27 07:46 | Outpatient (REF) | payer MEDICARE, SELFPAY ==
--- NOTE | 2024-03-27 07:49 | CA_ITS ---
Acquisition Time: 2024-03-27 08:16:39 Total Exercise Time: 00:09:30 Test Indications: PRE SYNCOPE Medications: ARLENE Protocol: RONNI Max HR: 130 BPM 87% of Pred: 148 BPM Max BP: 140/072 mmHG Max Work Load: 10.9 METS Exercise stress test exercise 9 min 30 sec of Ronni protocol achieving 87% MPHR, without anginal symptoms, with isolated PVC, with normotensive response to exercise, without EKG changes. Normal stress test. test reviewed with Dr. Jackson. Referred By: Ish Ortiz Overread By: Preethi Gomez
== END ==
LOC: HO.CARD 07:46
PROVIDERS: PCP Internal Medicine; Visit Provider Internal Medicine
DX: R06.09 Other forms of dyspnea (principal)
CPT/HCPCS: 93017

== ENCOUNTER → 2024-03-27 07:49 | Outpatient (BNV) | payer MEDICARE, SELFPAY | PROVIDERS: PCP Internal Medicine; Visit Provider Nurse Practitioner | DX: I49.3 Ventricular premature depolarization (principal) | CPT/HCPCS: 93016; 93018 ==

== ENCOUNTER 2024-10-16 07:00 | Outpatient (REF) | payer MEDICARE, SELFPAY ==
[2024-10-16 07:21] LABS: MANUAL DIFF FLAG NO
[2024-10-16 07:33] LABS: Basophils Absolute Auto 0.1 X10*3/uL (0.0-0.2); Basophils Percent Auto 0.8 % (0-2); Eosinophils Absolute Auto 0.3 X10*3/uL (0.0-0.4); Eosinophils Percent Auto 3.5 % (0-4); Hematocrit 45.3 % (42.0-52.0); Hemoglobin 15.6 g/dl (14.0-18.0); Imm Gran Abs Auto 0.04 X10*3/uL (0.00-0.03); Imm Gran Pct Auto 0.5 % (0.0-0.4); Lymphocytes Absolute Auto 2.4 X10*3/uL (1.2-4.9); Lymphocytes Percent Auto 28.4 % (20-40); Mean Corpuscular HGB Conc 34.4 g/dl (31.0-36.0); Mean Corpuscular Volume 89.9 fL (80.0-98.0); Mean Platelet Volume 11.6 fL (9.4-12.4); Monocytes Absolute Auto 0.7 X10*3/uL (0.1-1.2); Monocytes Percent Auto 7.9 % (2-11); Neutrophils Absolute Auto 4.9 x10*3/uL (2.0-8.3); Neutrophils Percent Auto 58.9 % (45-73); Platelet Count 215 X10*3/uL (160-400); Red Blood Count 5.04 X10*6/uL (4.60-5.80); Red Cell Distribution Width 12.6 % (11.0-16.0); White Blood Count 8.3 X10*3/uL (4.8-10.8)
[2024-10-16 07:44] LABS: Estimated Average Glucose 111 mg/dL; Hemoglobin A1C 151.9114 umol/L; Hemoglobin A1c % 5.5 % (<6.0); Total Hemoglobin (HGBA1C) 4129.9489 umol/L
[2024-10-16 08:11] LABS: Alanine Aminotransferase 35 U/L (0-40); Albumin Level 4.3 g/dL (3.5-5.0); Alkaline Phosphatase 76 U/L (39-117); Anion Gap 10 (12-20); Aspartate Amino Transferase 26 U/L (5-37); Bilirubin Total 0.7 mg/dL (0.0-1.0); Blood Urea Nitrogen 19 mg/dL (9-16); Calcium 10.1 mg/dL (8.4-10.2); Carbon Dioxide 28 mmol/L (22-29); Chloride 107 mmol/L (96-108); Cholesterol 201 mg/dL (<200); Estimated Glomerular Filt Rate > 60; Glucose Random 105 mg/dL (60-115); HDL Cholesterol 50 mg/dL (>40); LDL Cholesterol Calculated 137 mg/dL (<100); Sodium 141 mmol/L (135-145); Total Protein 6.8 g/dL (6.5-8.0); Triglycerides 74 mg/dL (<150)
[2024-10-16 08:29] LABS: Free T4 (Free Thyroxine) 1.06 ng/dL (0.71-1.85); Thyroid Stimulating Hormone 2.68 uIU/mL (0.32-4.0)
[2024-10-16 08:32] LABS: Folate 11.7 ng/mL (> or = 4.0); Prostate Specific Antigen Scr 0.77 ng/mL (<0.05-4.0); Vitamin B12 339 pg/mL (200-900)
== END 2024-10-16 07:01 | disposition home or self-care (01) ==
LOC: HO.LAB 07:00
PROVIDERS: PCP Internal Medicine; Visit Provider Internal Medicine
DX: R73.02 Impaired glucose tolerance (oral) (principal); E78.00 Pure hypercholesterolemia, unspecified; Z12.5 Encounter for screening for malignant neoplasm of prostate
CPT/HCPCS: 36415; 80053; 80061; 82607; 82746; 83036; 84153; 84439; 84443; 85025

== ENCOUNTER 2024-10-21 08:43 | Outpatient (AMB) | payer MEDICARE, SELFPAY ==
--- NOTE | 2024-10-21 08:53 | AM.OFFVISMDC ---
Intake Vital Signs 10/21/24 08:54 Height 5 ft 7 in Weight 191 lb BMI 29.9 BP 110/68 Blood Pressure Location Lt brachial Position Sitting Pulse 60 Pulse Source Pulse Oximeter Pulse Oximetry (%) 97 Oxygen Delivery Method Room Air Intake Visit Reasons: MARIA G [id number] Allergies No Known Allergies Allergy (Verified 10/21/24 08:55) Medication List - Last Reconciled 10/21/24 by Ish Ortiz MD HPI SWV G0439 HPI Details 74-year-old overweight male with a history of hypercholesterolemia impaired glucose tolerance coming in for annual well visit last seen in 03/15/2024. Patient's last colonoscopy was done in July 2019. Patient had a stress test done on account of shortness of breath 04/14/2024 showing normal stress test. [facility] Gastroenterology Dr. Lyons, Podiatry [facility] Orthopedics Dr. 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 Hypercholesterolemia Obesity (BMI 30-39.9) Fatty liver Vitamin D deficiency Surgical History H/O right knee surgery History of rotator cuff surgery History of colonoscopy History of prostate surgery History of inguinal hernia repair History of tonsillectomy History of umbilical hernia repair Family History Father Hypertension CVD (cardiovascular disease) Mother Hypertension Parkinson disease Maternal Grandfather Tuberculosis Paternal Grandfather Lymphoma Maternal Uncle Colon cancer Social History (Updated 10/21/24 @ 09:39 by Ish Ortiz MD) Housing: House Alcohol intake: current Alcohol intake frequency: a few times a week Alcohol type: beer and wine Comment: 2 x a week 2-3 drinks Patient Tobacco Use Status: Never used Tobacco e-Cigarette/Vaping Use: Never Used Second Hand Smoke Exposure: No Current occupational status: retired Cognitive needs: No Hearing needs: No Vision needs: Yes Questionnaire Medicare Wellness Checkup [age] What gender do you identify with?: male During the past 4 weeks, how much have you been bothered by emotional problems such as feeling anxious, depressed, irritable, sad or downhearted, and blue?: not at all During the past 4 weeks, has your physical & emotional health limited your social activities with family, friends, neighbors, or groups?: not at all During the past 4 weeks, how much bodily pain have you generally had?: very mild pain During the past 4 weeks, was someone available to help you if you needed & wanted help?: yes, as much as I wanted During the past 4 weeks, what was the hardest physical activity you could do for at least 2 minutes?: very heavy Can you get to places out of walking distance without help? (For eg., can you travel alone on buses, taxis or drive your car?): Yes Can you go shopping for groceries or clothes without someone's help?: Yes Can you prepare your own meals?: Yes Can you do your housework without help?: Yes Because of any health problems, do you need the help of another person with your personal care needs such as eating, bathing, dressing or getting around the house?: No Can you handle your own money without help?: Yes During the past 4 weeks, how would you rate your health in general?: excellent During the past 4 weeks how have things been going for you?: very well; could hardly better Are you having difficulties driving your car?: no Do you always fasten your seat belt when you are in a car?: yes, usually During past 4 weeks, have you been bothered by the following: never: Falling or dizzy when standing up, Sexual problems?, Trouble eating well?, Teeth or denture problems?, Problems using the telephone? and Tiredness or fatigue? Have you fallen 2 or more times in the past year?: No Are you afraid of falling?: No Are you a smoker?: no During the past 4 weeks, how many drinks of wine, beer, or other alcoholic beverages did you have?: 2-5 drinks per week Do you exercise for about 20 minutes 3 or more times a week?: yes, most of the time Have you been given information to help with the following?: no: Hazards in your house that might hurt you? and no: Keeping track of your medications? How often do you have trouble taking medicines the way you have been told to take them?: I do not have to take medicine How confident are you that you can control & manage most of your health problems?: very confident What is your race?: White PHQ-9 Over the last 2 weeks, how often have you been bothered by any of the following problems? 1. Little interest or pleasure in doing things: not at all 2. Feeling down, depressed, or hopeless: not at all 3. Trouble falling or staying asleep, or sleeping too much: several days 4. Feeling tired or having little energy: not at all 5. Poor appetite or overeating: not at all 6. Feeling bad about yourself - or that you are a failure or have let yourself or your family down: not at all 7. Trouble concentrating on things, such as reading the newspaper or watching television: not at all 8. Moving or speaking so slowly that other people could have noticed. Or the opposite - being so fidgety or restless that you have been moving around a lot more than usual: not at all 9. Thoughts that you would be better off or of hurting yourself in some way: not at all Total score: 1 Depression Screening Interpretation: Negative Depression Screening Done: Yes 35610 - PHQ-9 Billing: Yes Source: Developed by Drs. Pola Romero, Cortez Lovett and colleagues, with an educational libertad from [employer]. Thrive Questionnaire Date Thrive assessed: 01/16/24 LIZBET-7 AMB Questionnaire LIZBET-7 Date LIZBET - 7 assessed: 01/16/24 Source: Developed by Drs. Pola Romero, Cortez Lovett and colleagues, with an educational libertad from [employer]. Review of Systems Const Denies poor appetite and Denies weakness Eyes Denies no additional complaints ENT Reports Normal hearing present, Denies dizziness, Denies nasal congestion, Denies tinnitus and Denies sore throat Card Denies chest pain, Denies syncope, Denies rapid heart rate and Denies dyspnea Resp Denies cough and Denies dyspnea GI Denies change in stool character, Reports constipation, Denies diarrhea, Denies nausea and Denies vomiting Denies dysuria and Denies urinary frequency Neuro Reports Normal hearing present, Denies confusion, Denies dizziness, Denies syncope and Denies weakness Psych Denies confusion Physical Exam Vital Signs: Last Vital Signs Pulse 60 10/21/24 08:54 BP 110/68 10/21/24 08:54 Pulse Ox 97 10/21/24 08:54 Oxygen Delivery Method Room Air 10/21/24 08:54 BMI result Body Mass Index 29.9 Const General: No confusion Orientation/consciousness: No confusion HEENT Head: Yes normocephalic Ears: external ears normal and TM's normal bilaterally Face and sinus: Yes normal facial exam Mouth: moist mucous membranes Throat: Yes tonsils normal Eyes Conjunctivae: conjunctivae normal Pupils: Equal, round and reactive pupils present and Pupil accommodation reflex normal Direct Ophthalmoscopy: normal light reflex Neck Neck: No lymphadenopathy Thyroid: Thyroid normal Chest Chest palpation & inspection: normal inspection of the chest Resp Effort & Inspection: normal respiratory effort and no audible wheezes Auscultation: clear to auscultation bilaterally, no crackles, no wheezes and lung sounds not diminished Cardio Rate: regular rate Rhythm: regular rhythm Peripheral pulses: radial pulses present and dorsalis pedis present GI Other: guaiac negative prostate mild enlarged Palpation (GI): no masses Auscultation: normal bowel sounds and normoactive bowel sounds Male General Exam: Yes normal external exam Skin General skin exam: no rashes or lesions noted Rashes: no rashes Neuro General: No confusion Cranial nerves: Yes Equal, round and reactive pupils present and Yes Normal hearing present Cognition (Neuro): normal cognition Gait exam (Neuro): Normal gait present Motor exam (neuro): 5/5 motor strength present throughout Deep tendon reflexes (DTR's): Right brachioradialis reflex intensity grade: 2+, Left brachioradialis reflex intensity grade: 2+, Right patellar reflex intensity grade: 2+ and Left patellar reflex intensity grade: 2+ Extrem General: No edema Assessment & Plan Assessment & Plan (1) Medicare annual wellness visit, subsequent: Code(s): Z00.00 - Encounter for general adult medical examination without abnormal findings Plan: Patient is advised to eat healthy, keep well hydrated, keep active and have adequate sleep. (2) Impaired glucose tolerance: Code(s): R73.02 - Impaired glucose tolerance (oral) Plan: Decrease the amount of carbohydrate intake, pasta, bread, rice and potatoes are all sugar and that is aside from all the sweet stuff, remember that fruits are good but they are Sweet also. (3) Hypercholesterolemia: Code(s): E78.00 - Pure hypercholesterolemia, unspecified Plan: Avoid fried foods, chicken skin, eggs, butter margarine, pastries and meat. Be it pork or beef they have a lot of cholesterol LDL goal of less than 130 and triglyceride of less than 150 (4) Overweight (BMI 25.0-29.9): Code(s): E66.3 - Overweight Plan: Diet and exercise Quality Reporting (2020) Depression/Bipolar (159/160/161/177) PHQ-9: Total score: 1 Coding Level of Care Code Medicare Subsequent (G0439) Diagnoses Medicare annual wellness visit, subsequent Z00.00 Impaired glucose tolerance R73.02 Hypercholesterolemia E78.00 Overweight (BMI 25.0-29.9) E66.3 Additional Codes PHQ-9 - 15270 - PHQ-9 Billing: Yes ([id number])
[2024-10-21 08:54] VITALS: BP 110/68; PULSE 60; O2SAT 97; BMI 29.9
== END 2024-10-21 10:04 | disposition home or self-care (01) ==
PROVIDERS: PCP Internal Medicine; Visit Provider Internal Medicine
DX: Z00.00 Encounter for general adult medical examination without abnormal findings (principal); R73.02 Impaired glucose tolerance (oral); E66.3 Overweight; Z68.29 Body mass index [BMI] 29.0-29.9, adult; E78.00 Pure hypercholesterolemia, unspecified

== ENCOUNTER → 2024-10-21 08:43 | Outpatient (BNVA) | payer MEDICARE, SELFPAY | PROVIDERS: PCP Internal Medicine; Visit Provider Internal Medicine | DX: Z00.00 Encounter for general adult medical examination without abnormal findings (principal); R73.02 Impaired glucose tolerance (oral); E78.00 Pure hypercholesterolemia, unspecified; E66.3 Overweight; Z68.29 Body mass index [BMI] 29.0-29.9, adult; Z71.3 Dietary counseling and surveillance | CPT/HCPCS: 96127 ==

== ENCOUNTER 2025-10-29 08:50 | Outpatient (AMB) | payer MEDICARE, SELFPAY ==
[2025-10-29 08:52] VITALS: BP 118/72; PULSE 54; O2SAT 98; BMI 29.9
--- NOTE | 2025-10-29 08:53 | A.OFFVIS_ITS ---
Intake Vital Signs 10/29/25 08:52 Height 5 ft 7 in Weight 191 lb BMI 29.9 BP 118/72 Blood Pressure Location Lt brachial Position Sitting Pulse 54 Pulse Source Pulse Oximeter Pulse Oximetry (%) 98 Oxygen Delivery Method Room Air Intake Visit Reasons: V G0439 Allergies No Known Allergies Allergy (Verified 10/29/25 08:53) HPI [facility] G0439 HPI Details [facility], [facility], Gastroenterology Dr. Eloy lockwood while on trips- 06/2025 HPI Comments History of Present Illness Details History of Present Illness The patient is a 75-year-old male presenting for an annual wellness visit. His last visit was in September 2024, at which time blood work showed a normal blood count, electrolytes, and renal function with a creatinine of 1.01, but an elevated blood sugar of 105 with a normal hemoglobin A1c. His LDL cholesterol was 137, and his liver function, PSA, vitamin B12, folic acid, and thyroid levels were all normal. The patient's past medical history is significant for hypercholesterolemia and a left rotator cuff repair in 2021. His last colonoscopy was in 2018 and was normal. He reports two falls in the past year, one in June and another in the early summer, both occurring while he was outdoors and attributed to tripping without any associated chest pain, syncope, or head injury. He has a history of a laser procedure for his prostate and currently experiences nocturia about once per night. He reports some concerns brought up by his , including his sleep and memory. He notes that his sleep is generally good, but he wakes up 2-3 times per night and falls right back to sleep; occasionally, he will wake around 3:30 or 4:00 AM and be unable to return to sleep. He also worries about his memory, citing instances of forgetting why he went downstairs, misplacing items, and having increased difficulty with names, though he does not get lost while driving. The patient experienced significant pain in his hips, particularly the right side, during the late summer and early fall, which has since resolved completely. He takes Tylenol on an as-needed basis for aches after physical activity like shoveling but is not on any regular medications or supplements. He has no known drug allergies. His mother had a history of Parkinson's disease. Health Maintenance - The patient is presenting for his maggy al wellness visit. - Last laboratory testing was in 2023, with results including a cre atinine of 1.01, blood sugar of 105, normal hemoglobin A1c, and LDL cholesterol of 137. - A new requisition for fasting blood wo rk was provided to monitor glucose and cholesterol levels. - LDL goal is less than 130 mg/dL, and t riglyceride goal is less than 150 mg/dL. - Last colonoscopy was in 2018 and was n ormal. - Vaccinations are up to date, including a recent COVID booster, flu shot, and a second shingles shot. - Diet and Exercise: The patient reports being very active and was counseled to continue activity while being mindful of his limitations. - Alcohol Use: Patient reports occasiona l use and was counseled on new recommendations regarding alcohol consumption and its correlation with memory issues. - Last eye exam was in August with [facility]. - Advance Directives: The patient has a healthcare proxy, and a copy was requested for the chart. Social History - Substance Use: The patient denies ever smoking tobacco. - Alcohol Use: He reports drinking alcoh ol occasionally, having had a few beers around [facility] and a glass of [employer]. - In the summer, he may have a beer more often, typically one or two at a time, and sometimes drinks non-alcoholic beer. - Exercise and Activity: The patient oralia cribes himself as very active. - He walks his dog daily, goes hunting a [employer] fishing, cuts his own firewood, shovels snow, and uses a snowblower. - Nutrition: He does most of the cooking at home. - His diet includes eating fish two to t hree times per week, such as trout and salmon. - He tries to avoid desserts but acknowl edges eating pasta and potatoes. - Family and Living: He [place] w [place]aneeth [place]. - He has a camp in [place] where he fish es. 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 Hypercholesterolemia Obesity (BMI 30-39.9) Fatty liver Vitamin D deficiency Surgical History H/O right knee surgery History of rotator cuff surgery History of colonoscopy History of prostate surgery History of inguinal hernia repair History of tonsillectomy History of umbilical hernia repair Family History Father Hypertension CVD (cardiovascular disease) Mother Hypertension Parkinson disease Maternal Grandfather Tuberculosis Paternal Grandfather Lymphoma Maternal Uncle Colon cancer Social History (Updated 10/29/25 @ 09:23 by Ish Ortiz MD) Housing: House Alcohol intake: current Alcohol intake frequency: a few times a week Alcohol type: beer and wine Comment: 2 x a week 2-3 drinks, Patient Tobacco Use Status: Never used Tobacco Tobacco use type: Cigarette e-Cigarette/Vaping Use: Never Used Second Hand Smoke Exposure: No Current occupational status: retired Cognitive needs: No Hearing needs: No Vision needs: Yes Questionnaire Medicare Wellness Checkup [age] What gender do you identify with?: male During the past 4 weeks, how much have you been bothered by emotional problems such as feeling anxious, depressed, irritable, sad or downhearted, and blue?: not at all During the past 4 weeks, has your physical & emotional health limited your social activities with family, friends, neighbors, or groups?: not at all During the past 4 weeks, how much bodily pain have you generally had?: very mild pain During the past 4 weeks, was someone available to help you if you needed & wanted help?: yes, as much as I wanted During the past 4 weeks, what was the hardest physical activity you could do for at least 2 minutes?: very heavy Can you get to places out of walking distance without help? (For eg., can you travel alone on buses, taxis or drive your car?): Yes Can you go shopping for groceries or clothes without someone's help?: Yes Can you prepare your own meals?: Yes Can you do your housework without help?: Yes Because of any health problems, do you need the help of another person with your personal care needs such as eating, bathing, dressing or getting around the house?: No Can you handle your own money without help?: Yes During the past 4 weeks, how would you rate your health in general?: excellent During the past 4 weeks how have things been going for you?: very well; could hardly better Are you having difficulties driving your car?: no Do you always fasten your seat belt when you are in a car?: yes, usually During past 4 weeks, have you been bothered by the following: never: Falling or dizzy when standing up, Sexual problems?, Trouble eating well?, Teeth or denture problems?, Problems using the telephone? and Tiredness or fatigue? Have you fallen 2 or more times in the past year?: Yes Are you afraid of falling?: No Are you a smoker?: no During the past 4 weeks, how many drinks of wine, beer, or other alcoholic beverages did you have?: 2-5 drinks per week Do you exercise for about 20 minutes 3 or more times a week?: yes, most of the time Have you been given information to help with the following?: no: Hazards in your house that might hurt you? and no: Keeping track of your medications? How often do you have trouble taking medicines the way you have been told to take them?: I do not have to take medicine How confident are you that you can control & manage most of your health problems?: very confident What is your race?: White PHQ-9 Over the last 2 weeks, how often have you been bothered by any of the following problems? 1. Little interest or pleasure in doing things: not at all 2. Feeling down, depressed, or hopeless: not at all 3. Trouble falling or staying asleep, or sleeping too much: several days 4. Feeling tired or having little energy: not at all 5. Poor appetite or overeating: not at all 6. Feeling bad about yourself - or that you are a failure or have let yourself or your family down: not at all 7. Trouble concentrating on things, such as reading the newspaper or watching television: not at all 8. Moving or speaking so slowly that other people could have noticed. Or the opposite - being so fidgety or restless that you have been moving around a lot more than usual: not at all 9. Thoughts that you would be better off or of hurting yourself in some way: not at all Total score: 1 Source: Developed by Drs. Pola Romero, Kailey Wilder, Cortez Bowling and colleagues, with an educational libertad from [employer]. Review of Systems Narrative Review of Systems - Constitutional: Denies fever. - Eyes: Denies vision problems other than requiring glasses. - ENT: Reports very good hearing. - Swallowing: Denies dysphagia or coughing with eating. - Cardiovascular: Denies chest pain. - Respiratory: Denies dyspnea on exertion, including climbing stairs, and denies paroxysmal nocturnal dyspnea. - Gastrointestinal: Denies heartburn, nausea, and vomiting. - Reports normal bowel movements. - Genitourinary: Reports nocturia approximately once per night. - Denies other voiding issues. - Musculoskeletal: Denies swelling in the feet. - Reports resolved bilateral hip pain. - Neurological: Reports concerns about memory. - Denies dizziness, syncope, or headaches. - Psychiatric: Reports sleep is good but notes he is a light sleeper and wakes 2-3 times nightly but falls back asleep easily. Const Denies poor appetite and Denies weakness Eyes Denies no additional complaints ENT Reports Normal hearing present, Denies dizziness, Denies nasal congestion, Denies tinnitus and Denies sore throat Card Denies chest pain, Denies syncope, Denies rapid heart rate and Denies dyspnea Resp Denies cough and Denies dyspnea GI Denies change in stool character, Reports constipation, Denies diarrhea, Denies nausea and Denies vomiting Denies dysuria and Denies urinary frequency Neuro Reports Normal hearing present, Denies confusion, Denies dizziness, Denies syncope and Denies weakness Psych Denies confusion Physical Exam Exam Exam: Physical Exam General: Cooperative, healthy appearing, comfortable, no acute distress and well developed Orientation: Patient oriented x3 Limitations: No limitations Head: Normal to inspection Ears: Hearing very good bilaterally Nose: Normal external nose present Face and sinus: Normal facial exam Eyes: Appearance normal, both eyes and all related structures Neck: Normal visual inspection and Yes full ROM Respiratory: Normal respiratory effort and able to speak in complete sentences. Clear to auscultation bilaterally Cardiovascular: Regular rate and rhythm. Normal S1 and S2 GI: Normal to inspection. Soft to palpation and nontender Skin: No rashes or lesions noted Neuro: Patient oriented x3 Extremities: Normal to inspection Vital Signs: Last Vital Signs Pulse 54 10/29/25 08:52 BP 118/72 10/29/25 08:52 Pulse Ox 98 10/29/25 08:52 Oxygen Delivery Method Room Air 10/29/25 08:52 BMI result Body Mass Index 29.9 Const General: No confusion Orientation/consciousness: No confusion HEENT Head: Yes normocephalic Ears: external ears normal and TM's normal bilaterally Face and sinus: Yes normal facial exam Mouth: moist mucous membranes Throat: Yes tonsils normal Eyes Conjunctivae: conjunctivae normal Pupils: Equal, round and reactive pupils present and Pupil accommodation reflex normal Direct Ophthalmoscopy: normal light reflex Neck Neck: No lymphadenopathy Thyroid: Thyroid normal Chest Chest palpation & inspection: normal inspection of the chest Resp Effort & Inspection: normal respiratory effort and no audible wheezes Auscultation: clear to auscultation bilaterally, no crackles, no wheezes and lung sounds not diminished Cardio Rate: regular rate Rhythm: regular rhythm Peripheral pulses: radial pulses present and dorsalis pedis present GI Other: guaiac negative, prostate mild enlarged Palpation (GI): no masses Auscultation: normal bowel sounds and normoactive bowel sounds Male General Exam: Yes normal external exam Skin General skin exam: no rashes or lesions noted Rashes: no rashes Neuro General: No confusion Cranial nerves: Yes Equal, round and reactive pupils present and Yes Normal hearing present Cognition (Neuro): normal cognition Gait exam (Neuro): Normal gait present Motor exam (neuro): 5/5 motor strength present throughout Deep tendon reflexes (DTR's): Right brachioradialis reflex intensity grade: 2+, Left brachioradialis reflex intensity grade: 2+, Right patellar reflex intensity grade: 2+ and Left patellar reflex intensity grade: 2+ Extrem General: No edema Assessment & Plan Assessment & Plan (1) Medicare annual wellness visit, subsequent: Code(s): Z00.00 - Encounter for general adult medical examination without abnormal fin dings Plan: Patient is advised to eat healthy, keep well hydrated, keep active and have adequate sleep. (2) Impaired glucose tolerance: Code(s): R73.02 - Impaired glucose tolerance (oral) Plan: Decrease the amount of carbohydrate intake, pasta, bread, rice and potatoes are all sugar and that is aside from all the sweet stuff, remember that fruits are good but they are Sweet also. (3) Overweight (BMI 25.0-29.9): Code(s): E66.3 - Overweight Plan: Diet and exercise (4) Hypercholesterolemia: Code(s): E78.00 - Pure hypercholesterolemia, unspecified Plan: Avoid fried foods, chicken skin, eggs, butter margarine, pastries and meat. Be it pork or beef they have a lot of cholesterol LDL goal of less than 130 and triglyceride of less than 150 (5) Hip pain, right: Code(s): M25.551 - Pain in right hip Plan Plan Patient was informed and verbally consented to the use of an ambient scribe for clinic note documentation during this visit. 1. Annual Wellness Visit The patient will continue with his active lifestyle, including walking, fishing, and hunting, with counseling provided on being mindful of his physical limitations to prevent falls and other injuries. He was advised to maintain a healthy diet, stay hydrated, and continue his exercise regimen as these are toney to his overall health. A copy of his healthcare proxy form was requested for his medical chart. The patient's vaccinations are up to date. 2. Hypercholesterolemia, Unspecified The patient's last LDL cholesterol was 137 mg/dL. The goal is an LDL of less than 130 mg/dL and triglycerides of less than 150 mg/dL. A fasting lipid panel will be checked with the new blood work that was ordered. Continue to encourage diet, exercise, and healthy lifestyle modifications. 3. Prediabetes The patient's last blood glucose was elevated at 105 mg/dL, though his hemoglobin A1c was normal. A new order for fasting blood work was provided to re-evaluate his glucose levels. The patient was counseled on diet, including avoiding desserts and limiting consumption of pasta and potatoes. 4. Memory Impairment The patient expresses concern about his memory, citing short-term recall issues. A brief in-office cognitive screen was not significantly abnormal. The possibility of age-related vascular changes in the brain was discussed as a potential cause. The option of obtaining a CT scan of the brain was offered if his memory concerns worsen or become more bothersome. Continued adherence to a healthy lifestyle, including diet, hydration, and exercise, was encouraged for brain health. 5. Sleep Disturbance The patient reports waking multiple times per night but is usually able to fall back asleep quickly. Given the risks of falls associated with sleep medications in older adults, and the patient's generally good sleep, no pharmacological intervention is planned at this time. The option for behavioral therapy and good sleep hygiene was mentioned. Will continue to monitor. Discussion Notes I had a detailed discussion with the patient regarding his annual wellness visit. We reviewed his lab work from last September, noting the slightly elevated blood sugar of 105 and LDL of 137, and I provided him with a requisition for new fasting blood work. I counseled him on dietary modifications for prediabetes and hypercholesterolemia. We discussed his recent falls, and I emphasized the need to be cautious and aware of physical limitations to prevent future injuries. Regarding his memory concerns, I performed a brief cognitive screen, which was reassuring. I explained that while some changes can be normal with age, we could pursue a head CT scan if symptoms worsen. I also informed him about the newer recommendations regarding alcohol and its potential impact on memory. His sleep disturbances were reviewed; we agreed that since he falls back asleep easily and considering the fall risk with sleep aids, we would hold off on medication and monitor. I confirmed his vaccination status is up-to-date and requested he provide a copy of his healthcare proxy form for his chart. Patient Instructions - Please go for the fasting blood test with the lab form provided. - Remember to not eat or drink anything but water for at least 8 hours before the test. - Continue to stay active but be very careful to avoid falls. - Focus on a healthy diet with more vegetables and fruits, and try to limit desserts, pasta, and potatoes. - Limit your alcohol intake, as it can affect things like memory. - If you notice your memory problems are getting worse, please contact the office to discuss getting a brain scan. - Please bring a copy of your healthcare proxy form to us at your convenience so we can add it to your chart. Orders: Orders Complete Blood Count Auto Diff Today R73.02 - Impaired glucose tolerance (oral) Free T4 (Free Thyroxine) Today R73.02 - Impaired glucose tolerance (oral) Lipid Panel Today E78.00 - Pure hypercholesterolemia, unspecified, R73.02 - Impaired glucose tolerance (oral) Magnesium Today R73.02 - Impaired glucose tolerance (oral) Hemoglobin A1c Today R73.02 - Impaired glucose tolerance (oral) Comprehensive Met. Panel Today R73.02 - Impaired glucose tolerance (oral) Thyroid Stimulating Hormone Today R73.02 - Impaired glucose tolerance (oral) Vitamin B12 and Folate Today R73.02 - Impaired glucose tolerance (oral) Prostate Specific Antigen Scr Today R73.02 - Impaired glucose tolerance (oral) Smooth Muscle Antibody Today R73.02 - Impaired glucose tolerance (oral), R79.89 - Other specified abnormal findings of blood chemistry Quality Reporting (2019) Depression/Bipolar (159/160/161/177) PHQ-9: Total score: 1 Coding Level of Care Code Medicare Subsequent (G0439) Diagnoses Medicare annual wellness visit, subsequent Z00.00 Impaired glucose tolerance R73.02 Overweight (BMI 25.0-29.9) E66.3 Hypercholesterolemia E78.00 Hip pain, right M25.551
--- OUTSIDE RECORDS SUMMARY | 2025-10-29 09:34 | XMS_ITS | Patient Health Record ---
Author Organization [facility] Address [address] [place] [address] Care Team Providers Care Javascript Web Developer Name Role Phone Ish Ortiz MD Primary Care Provider Philip Mcqueen Jr Unavailable [phone] Reason For Referral No Information Medications Medication SIG (Take, Route, Fr equency, Duration) Notes Start Date End Date Status Prevalite 4 GM Packet 1 packet Orally Twice a day Active Immunizations Vaccine Route Administration Date Status Comme nts Influenza Unknown 09/03/2018 Administered Social History Social History Additional Details Category Social Info Options Details Miscellaneous: Marital status: Occupation: retired Problems Problem Type SNOMED Code ICD Code Onset Dates Problem Status W/U Status Risk Notes Problem Rectal bleeding (40000499) Rectal bleeding (K62.5) Active confirmed Problem Diarrhea (46227937) Diarrhea, unspecified type (R19.7) Active confirmed Plan Of Treatment Future Test Test Name Order Date COLONOSCOPY 08/30/2016 COLONOSCOPY 07/02/2019 Insurance Providers Payer Name Payer Address Payer Phone Subscriber Number Group Number Insured Name Patient Relationship to Insured Coverage Start Date Coverage End Date [place] [address] [facility] [place] [address] [id number] MELANY SHAH Self - patient is the insured [employer] CLAIMS [address] [place] [address] [id number] MELANY SHAH Self - patient is the insured Medical (General) History Medical History History ICD Code colonoscopy in 08/08/19, and normal biops ies, ten-year followup recommended. salmonella food poisoning around 1985 Surgical History Surgery Date(Month/Year) umbilical hernia repair right knee arthroscopy bilateral inguinal hernia repairs x2
--- OUTSIDE RECORDS SUMMARY | 2025-10-29 09:34 | XMS_ITS | Patient Health Record ---
Author Organization [facility] Address [address] [place] [address] Care Team Providers Care Front End Wheel Loader Operator Name Role Phone Ish Ortiz Primary Care Provider Kieran Garcia Unavailable [phone] Allergies No Known Allergies Reason For Referral No Information Social History Tobacco Use: Social History Observation Description Date Details (start date - stop date) Never Smoker NA - NA Tobacco Use/Smoking Question Answer Notes Are you a: nonsmoker Additional Findings: Tobacco Non-User Current no n-smoker Alcohol Screen Question Answer Notes Did you have a drink containing alcohol in the p ast year? Yes Points 0 Interpretation Negative Tobacco use other than smoking: Question Answer Notes Are you an other tobacco user? No Problems Problem Type SNOMED Code ICD Code Onset Dates Problem Status W/U Status Risk Notes Problem Acquired hammer toe of right foot (7457697463634 105) Other hammer toe(s) (acquired), right foot (M20.41) Active confirmed Plan Of Treatment No Information Insurance Providers Payer Name Payer Address Payer Phone Subscriber Number Group Number Insured Name Patient Relationship to Insured Coverage Start Date Coverage End Date Medicare National [facility] [address] [place] [address] [phone] [id number] Stu Dowell Self - patient is the insured [employer] [address] [place] [address] [id number] Stu Dowell Self - patient is the insured Medical (General) History Medical History History ICD Code covid-19 Warts Measles Mumps Chicken pox Tarsal Tunnel Surgical History Surgery Date(Month/Year) hernia 1984,2008,2010
== END 2025-10-29 09:44 | disposition home or self-care (01) ==
LOC: HO.HMCH 08:50
PROVIDERS: PCP Internal Medicine; Visit Provider Internal Medicine
DX: Z00.00 Encounter for general adult medical examination without abnormal findings (principal); R73.02 Impaired glucose tolerance (oral); Z68.29 Body mass index [BMI] 29.0-29.9, adult; E66.3 Overweight; E78.00 Pure hypercholesterolemia, unspecified; M25.551 Pain in right hip